=== PATIENT | female | born 1985 | race Caucasian/White ===

== ENCOUNTER 2023-09-30 23:31 | Inpatient (IN) | payer OTHER, BC ==
[2023-10-01] MEDS ORDERED: Morphine 4 MG/ML VIAL SLOW IVP PRN (06:21)
[2023-10-01] MEDS: Sodium Chloride 0.9% 1,000 ML IV SCH ×2 (06:30→21:07)
[2023-10-01 06:38] VITALS: BMI 25.7
[2023-10-01] MEDS ORDERED: Morphine 4 MG/ML VIAL ONE (09:03)
[2023-10-01] MEDS: Morphine 4 MG/ML VIAL SLOW IVP PRN ×4 (09:05→16:34)
[2023-10-01] MEDS ORDERED: Ondansetron PF 4 MG/2 ML Vial IVP PRN (09:15)
[2023-10-01] MEDS ORDERED: Ciprofloxacin Lactate/D5W 400 MG in Premix 1 BAG IVPB SCH (09:30)
[2023-10-01] MEDS ORDERED: EPINEPHrine 1 MG/ML VIAL ONE (11:01)
[2023-10-01] MEDS ORDERED: Bupivacaine 0.25% HCL 30 ML VIAL ONE (11:01)
[2023-10-01] MEDS ORDERED: Albumin 5% 500 ML ONE (11:23)
[2023-10-01] MEDS ORDERED: metroNIDAZOLE 500 MG/100 ML BAG ONE (11:24)
[2023-10-01] MEDS ORDERED: HYDROmorphone 2 MG/ML VIAL ONE (11:48)
[2023-10-01] MEDS ORDERED: PROPOFOL 20 ML ONE (11:48)
[2023-10-01] MEDS ORDERED: Dexamethasone 4 mg/ml Vial ONE (11:49)
[2023-10-01] MEDS ORDERED: Rocuronium Bromide 10 MG/ML (10ML VIAL) ONE ×2 (11:49→11:59)
[2023-10-01] MEDS ORDERED: Ondansetron PF 4 MG/2 ML Vial ONE ×2 (11:49→11:59)
[2023-10-01] MEDS ORDERED: Ketorolac Tromethamine 30 MG/ML VIAL ONE ×2 (11:57→11:59)
[2023-10-01] MEDS ORDERED: PHENYLEPHRINE-NS 100 MCG/ML 10 ML SYRINGE ONE ×2 (11:59→12:13)
[2023-10-01] MEDS ORDERED: Dexamethasone 20 MG/5 ML VIAL ONE (11:59)
[2023-10-01] MEDS ORDERED: NEOSTIGMINE 3 MG/3 ML SYR 3 MG/3 ML SYRINGE ONE ×2 (11:59→13:24)
[2023-10-01] MEDS ORDERED: Glycopyrrolate 0.2 MG/ML 5 ML SYRINGE ONE ×2 (11:59→13:24)
[2023-10-01] MEDS ORDERED: PROPOFOL 200 MG/20 ML VIAL ONE (11:59)
[2023-10-01] MEDS ORDERED: Ondansetron HCl/PF 4 MG/2 ML Vial IVP PRN (12:25)
[2023-10-01] MEDS ORDERED: Promethazine HCl 25 MG/ML VIAL IM PRN (12:25)
[2023-10-01] MEDS ORDERED: HYDROmorphone 2 MG/ML VIAL SLOW IVP PRN (12:25)
[2023-10-01] MEDS ORDERED: fentaNYL PF 100 MCG/2 ML SYRINGE ONE ×2 (13:53→14:11)
[2023-10-01] MEDS ORDERED: metroNIDAZOLE 500 MG in Premix 1 BAG IVPB SCH (14:00)
[2023-10-01] MEDS ORDERED: HYDROmorphone 0.5 MG/0.5 ML SYRINGE ONE ×2 (14:32→14:38)
[2023-10-01] MEDS ORDERED: fentaNYL 50 mcg/mL 1 mL Vial ONE (14:40)
[2023-10-01] MEDS ORDERED: MORPHINE IVPB SCH (18:00)
[2023-10-01] MEDS: Morphine Sulfate 100 MG in Dextrose 5% in Water 98 ML IV SCH (18:01)
[2023-10-01] MEDS ORDERED: Naloxone HCl 0.4 mg/ml Vial IV PRN (20:00)
[2023-10-01] MEDS: metroNIDAZOLE 500 MG in Premix 1 BAG IVPB SCH (21:07)
[2023-10-01] MEDS: Ciprofloxacin Lactate/D5W 400 MG in Premix 1 BAG IVPB SCH (23:00)
[2023-10-01] MEDS: Lorazepam 2 MG/ML VIAL SLOW IVP PRN (23:38)
[2023-10-02] MEDS: metroNIDAZOLE 500 MG in Premix 1 BAG IVPB SCH ×3 (05:43→19:30)
[2023-10-02] MEDS: Sodium Chloride 0.9% 1,000 ML IV SCH ×2 (06:00→15:52)
[2023-10-02 06:40] LABS: Hematocrit 32.6 % (36.0-47.0); Hemoglobin 10.6 g/dL (12.0-16.0); Mean Corpuscular HGB CONC 32.5 g/dL (32.0-36.0); Mean Corpuscular Hemoglobin 30.3 pg (27.0-31.0); Mean Corpuscular Volume 93.1 fl (78.0-98.0); Mean Platelet Volume 9.3 fL (7.4-10.4); Platelet Count 252 10x3/uL (130-400); RBC Distribution Width 13.1 % (11.5-14.5); White Blood Cell (WBC) Count 13.6 10x3/uL (4.8-10.8)
[2023-10-02] MEDS: Lorazepam 2 MG/ML VIAL SLOW IVP PRN ×2 (07:14→19:29)
[2023-10-02] MEDS: Ciprofloxacin Lactate/D5W 400 MG in Premix 1 BAG IVPB SCH ×2 (08:58→19:35)
[2023-10-02] MEDS: Acetaminophen 325 MG TAB PO PRN (17:53)
[2023-10-03] MEDS: Lorazepam 2 MG/ML VIAL SLOW IVP PRN (01:54)
[2023-10-03] MEDS: Acetaminophen 325 MG TAB PO PRN (01:54)
[2023-10-03] MEDS: Sodium Chloride 0.9% 1,000 ML IV SCH ×3 (03:17→13:29)
[2023-10-03] MEDS: metroNIDAZOLE 500 MG in Premix 1 BAG IVPB SCH ×3 (03:55→21:38)
[2023-10-03] MEDS: Morphine Sulfate 100 MG in Dextrose 5% in Water 98 ML IV SCH (05:48)
[2023-10-03 07:02] LABS: Hematocrit 35.2 % (36.0-47.0); Hemoglobin 11.5 g/dL (12.0-16.0); Mean Corpuscular HGB CONC 32.7 g/dL (32.0-36.0); Mean Corpuscular Volume 94.9 fl (78.0-98.0); Mean Platelet Volume 9.1 fL (7.4-10.4); Platelet Count 273 10x3/uL (130-400); Red Blood Cell (RBC) Count 3.71 mill/uL (4.20-5.40); White Blood Cell (WBC) Count 17.2 10x3/uL (4.8-10.8)
[2023-10-03] MEDS ORDERED: Senokot 8.6 MG TAB PO SCH (08:30)
[2023-10-03 08:58] LABS: ALT (SGPT) 58 U/L (8-55); AST (SGOT) 22 U/L (5-34); Albumin 2.7 g/dL (3.5-5.0); Alkaline Phosphatase 142 U/L (40-110); Anion Gap 15 mmol/L (10-20); BUN (Urea Nitrogen) 4 mg/dL (7.0-18.7); Bilirubin, Total 2.9 mg/dL (0.2-1.2); Calc. Creatinine Clearance 145 mL/min (70-130); Carbon Dioxide 21 mmol/L (22-29); Chloride 100 mmol/L (98-107); Estimated GFR 118; Globulin 3.1 g/dL (2.4-3.5); Glucose 71 mg/dL (70-105); Potassium 3.6 mmol/L (3.5-5.1); Protein, Total 5.8 g/dL (6.0-8.3); Sodium 132 mmol/L (136-145)
[2023-10-03] MEDS: Ciprofloxacin Lactate/D5W 400 MG in Premix 1 BAG IVPB SCH (09:03)
[2023-10-03] MEDS: Polyethylene Glycol 3350 17 GM Packet PO SCH (09:03)
[2023-10-03] MEDS ORDERED: Iopamidol-370 76% 500 ML MDV (1 ML CHARGE) ONE (09:41)
[2023-10-03] MEDS ORDERED: Lactated Ringer's 1,000 ML IV SCH (11:45)
[2023-10-03 13:08] LABS: Bacteria/HPF 2+ HPF (None Seen); Bilirubin Negative (Negative); Blood, Urine Negative (Negative); CAUTI Indications for Culture Dysuria,urgency,freq; Clarity Clear (Clear); Glucose, Urine (Dipstick) Normal (Negative); Ketone, Urine Trace mg/dL (Negative); Leukocyte Negative Leu/uL (Negative); Nitrite Negative (Negative); Protein, Urine (Dipstick) Negative (Neg-Trace); RBC/HPF 0-3 HPF (0-3); Specific Gravity, Urine 1.011 (1.002-1.036); Squamous Epithelial 0-3 HPF (0-3); Urobilinogen Normal mg/dL (Less than 2); WBC/HPF 0-3 HPF (0-3)
[2023-10-03 13:10] LABS: Urine Culture Reflex No No
[2023-10-03] MEDS: LevoFLOXacin 750 mg/D5W 750 MG in Premix 1 BAG IVPB SCH (14:46)
[2023-10-03] MEDS ORDERED: VANCOMYCIN IVPB PRN (18:08)
[2023-10-03] MEDS ORDERED: Vancomycin (BATCH) 1.75 GM in Premix 1 BAG IVPB SCH (18:15)
[2023-10-03] MEDS ORDERED: diphenhydrAMINE 25 MG CAP PO PRN (19:44)
[2023-10-03] MEDS ORDERED: Ondansetron HCl/PF 4 MG/2 ML Vial IVP PRN (19:44)
[2023-10-03] MEDS ORDERED: diphenhydrAMINE 50 MG/ML VIAL IM PRN (19:44)
[2023-10-03] MEDS ORDERED: Promethazine HCl 25 MG/ML VIAL IM PRN ×2 (19:44)
[2023-10-03] MEDS ORDERED: Naloxone HCl 0.4 mg/ml Vial IV PRN (19:44)
[2023-10-03] MEDS ORDERED: Communication Order-Pharmacy FS SCH (19:45)
[2023-10-03] MEDS: FENTANYL 500 MCG/10 ML VIAL 2,000 MCG in Sodium Chloride 0.9% 60 ML IV PRN (20:40)
[2023-10-03] MEDS ORDERED: PHARMACY TO DOSE VANCOMYCIN IVPB PRN (20:47)
[2023-10-03 20:59] LABS: Bacteria/HPF None Seen HPF (None Seen); Bilirubin Negative (Negative); Blood, Urine Negative (Negative); Clarity Clear (Clear); Glucose, Urine (Dipstick) Normal (Negative); Ketone, Urine Trace mg/dL (Negative); Leukocyte Negative Leu/uL (Negative); Nitrite Negative (Negative); Protein, Urine (Dipstick) Negative (Neg-Trace); RBC/HPF 0-3 HPF (0-3); Specific Gravity, Urine 1.003 (1.002-1.036); Squamous Epithelial 0-3 HPF (0-3); Urobilinogen Normal mg/dL (Less than 2); WBC/HPF None Seen HPF (0-3)
[2023-10-03] MEDS ORDERED: Furosemide 20 MG TAB PO SCH (21:30)
[2023-10-03] MEDS: diphenhydrAMINE 50 MG/ML VIAL IVP PRN (21:34)
[2023-10-04] MEDS: Acetaminophen 325 MG TAB PO PRN (00:08)
[2023-10-04] MEDS: diphenhydrAMINE 50 MG/ML VIAL IVP PRN ×2 (00:10→21:23)
[2023-10-04] MEDS: Sodium Chloride 0.9% 1,000 ML IV SCH ×4 (02:50→21:46)
[2023-10-04] MEDS: Vancomycin 1 GM in Premix 1 BAG IVPB SCH ×3 (04:45→23:28)
[2023-10-04] MEDS: metroNIDAZOLE 500 MG in Premix 1 BAG IVPB SCH ×3 (04:45→21:30)
[2023-10-04 05:37] LABS: Hematocrit 31.1 % (36.0-47.0); Hemoglobin 10.1 g/dL (12.0-16.0); Mean Corpuscular HGB CONC 32.5 g/dL (32.0-36.0); Mean Corpuscular Hemoglobin 30.2 pg (27.0-31.0); Mean Corpuscular Volume 93.1 fl (78.0-98.0); Mean Platelet Volume 8.9 fL (7.4-10.4); Platelet Count 294 10x3/uL (130-400); RBC Distribution Width 13.2 % (11.5-14.5); Red Blood Cell (RBC) Count 3.34 mill/uL (4.20-5.40); White Blood Cell (WBC) Count 13.8 10x3/uL (4.8-10.8)
[2023-10-04 05:38] LABS: #Eosinphils 0.1 thou/uL (0.0-0.7); #Monocytes 0.7 thou/uL (0.11-0.59); #Neutrophils 11.7 thou/uL (1.40-6.50); %Basophils 0.1 % (0.0-1.0); %Eosinophils 0.4 % (0.0-10.0); %Lymphocytes 9.1 % (21.0-51.0); %Monocytes 4.9 % (0.0-10.0); %Neutrophils 84.5 % (42.0-75.0); Hematocrit 30.5 % (36.0-47.0); Hemoglobin 9.9 g/dL (12.0-16.0); Mean Corpuscular HGB CONC 32.5 g/dL (32.0-36.0); Mean Corpuscular Hemoglobin 30.6 pg (27.0-31.0); Mean Corpuscular Volume 94.1 fl (78.0-98.0); Platelet Count 302 10x3/uL (130-400); RBC Distribution Width 13.2 % (11.5-14.5); Red Blood Cell (RBC) Count 3.24 mill/uL (4.20-5.40); White Blood Cell (WBC) Count 13.8 10x3/uL (4.8-10.8)
[2023-10-04 06:14] LABS: ALT (SGPT) 37 U/L (8-55); AST (SGOT) 14 U/L (5-34); Albumin 2.3 g/dL (3.5-5.0); Alkaline Phosphatase 106 U/L (40-110); Anion Gap 13 mmol/L (10-20); BUN (Urea Nitrogen) 4 mg/dL (7.0-18.7); Bilirubin, Total 1.6 mg/dL (0.2-1.2); Calc. Creatinine Clearance 147 mL/min (70-130); Calcium 7.7 mg/dL (7.8-10.44); Carbon Dioxide 25 mmol/L (22-29); Chloride 99 mmol/L (98-107); Estimated GFR 119; Globulin 2.6 g/dL (2.4-3.5); Glucose 86 mg/dL (70-105); Magnesium 2.1 mg/dL (1.6-2.6); Potassium 3.2 mmol/L (3.5-5.1); Protein, Total 4.9 g/dL (6.0-8.3); Sodium 134 mmol/L (136-145)
[2023-10-04] MEDS: Polyethylene Glycol 3350 17 GM Packet PO SCH (07:59)
[2023-10-04] MEDS: Phenazopyridine HCl 100 MG TAB PO SCH ×3 (07:59→17:32)
[2023-10-04 09:22] LABS: Phosphorus 3.1 mg/dL (2.3-4.7)
[2023-10-04] MEDS ORDERED: Electrolyte Replacement Protocol 1 EACH FS SCH (09:43)
[2023-10-04] MEDS: Ondansetron PF 4 MG/2 ML Vial IVP PRN ×3 (09:43→21:24)
[2023-10-04] MEDS: Potassium Chloride 20 MEQ in Premix 1 BAG IVPB SCH ×2 (10:22→20:24)
[2023-10-04] MEDS: LevoFLOXacin 750 mg/D5W 750 MG in Premix 1 BAG IVPB SCH (17:32)
[2023-10-04] MEDS: Scopolamine 1 mg/72 hour Patch TD SCH (20:54)
[2023-10-04 21:51] LABS: Vancomycin, Trough 13.2 ug/mL
[2023-10-04] MEDS: Vancomycin (BATCH) 1.25 GM in Premix 1 BAG IVPB SCH (23:02)
[2023-10-04] MEDS ORDERED: Vancomycin 1 GM in Premix 1 BAG IVPB SCH (23:59)
[2023-10-05] MEDS: FENTANYL 500 MCG/10 ML VIAL 2,000 MCG in Sodium Chloride 0.9% 60 ML IV PRN (03:07)
[2023-10-05] MEDS: diphenhydrAMINE 50 MG/ML VIAL IVP PRN ×2 (03:17→21:03)
[2023-10-05] MEDS: Ondansetron PF 4 MG/2 ML Vial IVP PRN ×4 (03:17→21:01)
[2023-10-05] MEDS: metroNIDAZOLE 500 MG in Premix 1 BAG IVPB SCH ×3 (04:43→20:34)
[2023-10-05] MEDS: Sodium Chloride 0.9% 1,000 ML IV SCH ×3 (04:43→23:10)
[2023-10-05 05:05] LABS: #Eosinphils 0.1 thou/uL (0.0-0.7); #Monocytes 0.7 thou/uL (0.11-0.59); #Neutrophils 8.8 thou/uL (1.40-6.50); %Basophils 0.1 % (0.0-1.0); %Eosinophils 0.6 % (0.0-10.0); %Lymphocytes 10.6 % (21.0-51.0); %Monocytes 6.6 % (0.0-10.0); %Neutrophils 80.7 % (42.0-75.0); Hematocrit 28.7 % (36.0-47.0); Hemoglobin 9.4 g/dL (12.0-16.0); Mean Corpuscular HGB CONC 32.8 g/dL (32.0-36.0); Mean Corpuscular Hemoglobin 30.4 pg (27.0-31.0); Mean Corpuscular Volume 92.9 fl (78.0-98.0); Mean Platelet Volume 8.9 fL (7.4-10.4); Platelet Count 329 10x3/uL (130-400); RBC Distribution Width 13.3 % (11.5-14.5); Red Blood Cell (RBC) Count 3.09 mill/uL (4.20-5.40); White Blood Cell (WBC) Count 10.9 10x3/uL (4.8-10.8)
[2023-10-05 05:55] LABS: ALT (SGPT) 28 U/L (8-55); AST (SGOT) 16 U/L (5-34); Albumin 2.2 g/dL (3.5-5.0); Alkaline Phosphatase 96 U/L (40-110); Anion Gap 14 mmol/L (10-20); BUN (Urea Nitrogen) 7 mg/dL (7.0-18.7); Bilirubin, Total 1.4 mg/dL (0.2-1.2); Calc. Creatinine Clearance 127 mL/min (70-130); Calcium 7.5 mg/dL (7.8-10.44); Carbon Dioxide 23 mmol/L (22-29); Chloride 103 mmol/L (98-107); Estimated GFR 115; Globulin 2.6 g/dL (2.4-3.5); Glucose 86 mg/dL (70-105); Potassium 3.4 mmol/L (3.5-5.1); Protein, Total 4.8 g/dL (6.0-8.3); Sodium 137 mmol/L (136-145)
[2023-10-05] MEDS: Potassium Chloride 20 MEQ in Premix 1 BAG IVPB SCH ×2 (07:31→09:09)
[2023-10-05] MEDS: Phenazopyridine HCl 100 MG TAB PO SCH (07:31)
[2023-10-05] MEDS: Bisacodyl 5 MG TAB PO SCH ×2 (08:27→09:10)
[2023-10-05] MEDS: Pantoprazole 40 MG VIAL IVP SCH (08:28)
[2023-10-05] MEDS: Vancomycin (BATCH) 1.25 GM in Premix 1 BAG IVPB SCH (09:34)
[2023-10-05] MEDS ORDERED: Ketorolac Tromethamine 30 MG/ML VIAL IVP SCH (11:15)
[2023-10-05] MEDS: Phenazopyridine HCl 100 MG TAB PO PRN (13:26)
[2023-10-05] MEDS: LevoFLOXacin 750 mg/D5W 750 MG in Premix 1 BAG IVPB SCH (13:26)
[2023-10-05] MEDS: Ketorolac Tromethamine 30 MG/ML VIAL IVP SCH ×2 (17:07→23:07)
[2023-10-06] MEDS: Ketorolac Tromethamine 30 MG/ML VIAL IVP SCH ×3 (04:03→18:44)
[2023-10-06] MEDS: Ondansetron PF 4 MG/2 ML Vial IVP PRN ×2 (04:03→12:18)
[2023-10-06] MEDS: metroNIDAZOLE 500 MG in Premix 1 BAG IVPB SCH ×3 (04:04→20:45)
[2023-10-06 05:29] LABS: #Eosinphils 0.2 thou/uL (0.0-0.7); #Monocytes 0.6 thou/uL (0.11-0.59); #Neutrophils 6.2 thou/uL (1.40-6.50); %Basophils 0.1 % (0.0-1.0); %Lymphocytes 16.2 % (21.0-51.0); %Monocytes 7.1 % (0.0-10.0); %Neutrophils 73.3 % (42.0-75.0); Hematocrit 30.2 % (36.0-47.0); Hemoglobin 9.8 g/dL (12.0-16.0); Mean Corpuscular HGB CONC 32.5 g/dL (32.0-36.0); Mean Corpuscular Hemoglobin 30.3 pg (27.0-31.0); Mean Corpuscular Volume 93.5 fl (78.0-98.0); Mean Platelet Volume 8.9 fL (7.4-10.4); Platelet Count 341 10x3/uL (130-400); RBC Distribution Width 13.6 % (11.5-14.5); Red Blood Cell (RBC) Count 3.23 mill/uL (4.20-5.40); White Blood Cell (WBC) Count 8.4 10x3/uL (4.8-10.8)
[2023-10-06] MEDS ORDERED: traMADol HCl 50 MG TAB PO PRN (06:37)
[2023-10-06] MEDS ORDERED: Cyclobenzaprine 10 MG TAB PO PRN (06:38)
[2023-10-06] MEDS ORDERED: Acetaminophen 500 MG TAB PO SCH (06:45)
[2023-10-06] MEDS: Bisacodyl 5 MG TAB PO SCH (08:41)
[2023-10-06] MEDS: Pantoprazole 40 MG VIAL IVP SCH (08:42)
[2023-10-06] MEDS: traMADol HCl 50 MG TAB PO SCH ×2 (11:28→19:32)
[2023-10-06] MEDS: Sodium Chloride 0.9% 1,000 ML IV SCH (11:29)
[2023-10-06] MEDS: Acetaminophen 500 MG TAB PO SCH ×2 (12:18→19:32)
[2023-10-06] MEDS: LevoFLOXacin 750 mg/D5W 750 MG in Premix 1 BAG IVPB SCH (13:32)
[2023-10-06] MEDS: Morphine 2 MG/ML VIAL SLOW IVP PRN ×2 (13:33→17:31)
[2023-10-06] MEDS: Ondansetron HCl/PF 8 MG in Sodium Chloride 0.9% 50 ML IVPB PRN (17:23)
[2023-10-06] MEDS: diphenhydrAMINE 50 MG/ML VIAL IVP PRN (20:50)
[2023-10-07] MEDS: traMADol HCl 50 MG TAB PO SCH ×5 (00:25→23:17)
[2023-10-07] MEDS: Promethazine 25 MG TAB PO PRN ×3 (00:25→23:33)
[2023-10-07] MEDS: Ketorolac Tromethamine 30 MG/ML VIAL IVP SCH ×5 (00:28→23:33)
[2023-10-07] MEDS: Acetaminophen 500 MG TAB PO SCH ×6 (00:28→23:16)
[2023-10-07] MEDS: Sodium Chloride 0.9% 1,000 ML IV SCH ×3 (00:33→15:50)
[2023-10-07] MEDS: Morphine 2 MG/ML VIAL SLOW IVP PRN ×3 (02:45→16:38)
[2023-10-07] MEDS: metroNIDAZOLE 500 MG in Premix 1 BAG IVPB SCH ×3 (03:24→20:22)
[2023-10-07] MEDS: Phenazopyridine HCl 100 MG TAB PO PRN (06:47)
[2023-10-07] MEDS: Pantoprazole 40 MG VIAL IVP SCH (09:19)
[2023-10-07] MEDS: Ondansetron HCl/PF 8 MG in Sodium Chloride 0.9% 50 ML IVPB PRN ×2 (09:19→18:46)
[2023-10-07] MEDS: Bisacodyl 5 MG TAB PO SCH (09:20)
[2023-10-07] MEDS: Naloxegol 12.5 MG TAB PO SCH (09:20)
[2023-10-07] MEDS: LevoFLOXacin 750 mg/D5W 750 MG in Premix 1 BAG IVPB SCH (14:30)
[2023-10-07] MEDS: diphenhydrAMINE 50 MG/ML VIAL IVP PRN ×2 (16:38→23:34)
[2023-10-07] MEDS: Scopolamine 1 mg/72 hour Patch TD SCH (20:22)
[2023-10-08] MEDS: Sodium Chloride 0.9% 1,000 ML IV SCH (01:57)
[2023-10-08] MEDS: metroNIDAZOLE 500 MG in Premix 1 BAG IVPB SCH ×4 (04:17→22:08)
[2023-10-08] MEDS: Ketorolac Tromethamine 30 MG/ML VIAL IVP SCH ×4 (05:27→23:08)
[2023-10-08] MEDS: traMADol HCl 50 MG TAB PO SCH ×2 (05:27→06:05)
[2023-10-08] MEDS: Acetaminophen 500 MG TAB PO SCH ×4 (05:27→20:06)
[2023-10-08] MEDS: Naloxegol 12.5 MG TAB PO SCH (06:05)
[2023-10-08] MEDS: Pantoprazole 40 MG VIAL IVP SCH (09:02)
[2023-10-08] MEDS: Bisacodyl 5 MG TAB PO SCH (09:02)
[2023-10-08] MEDS: LevoFLOXacin 750 mg/D5W 750 MG in Premix 1 BAG IVPB SCH (12:45)
[2023-10-08] MEDS: diphenhydrAMINE 50 MG/ML VIAL IVP PRN (22:15)
[2023-10-08] MEDS: Promethazine 25 MG TAB PO PRN (22:20)
[2023-10-09] MEDS: traMADol HCl 50 MG TAB PO PRN ×2 (04:00→12:11)
[2023-10-09] MEDS: Ketorolac Tromethamine 30 MG/ML VIAL IVP SCH ×2 (05:10→12:11)
[2023-10-09] MEDS: metroNIDAZOLE 500 MG in Premix 1 BAG IVPB SCH (05:18)
[2023-10-09] MEDS: Naloxegol 12.5 MG TAB PO SCH (05:46)
[2023-10-09 07:04] LABS: Anion Gap 12 mmol/L (10-20); BUN (Urea Nitrogen) Less than 4 mg/dL (7.0-18.7); Calc. Creatinine Clearance 159 mL/min (70-130); Calcium 7.8 mg/dL (7.8-10.44); Carbon Dioxide 22 mmol/L (22-29); Chloride 106 mmol/L (98-107); Estimated GFR 121; Glucose 96 mg/dL (70-105); Potassium 3.5 mmol/L (3.5-5.1); Sodium 136 mmol/L (136-145)
[2023-10-09] MEDS: Acetaminophen 500 MG TAB PO SCH (11:22)
[2023-10-09 11:51] VITALS: BP 132/84; TEMP 98.1
[2023-10-09] MEDS ORDERED: Ibuprofen 600 MG TAB PO PRN (13:02)
[2023-10-09] MEDS ORDERED: hydrOXYzine 25 MG TAB PO PRN (13:03)
[2023-10-09] MEDS ORDERED: Bisacodyl 5 MG TAB PO PRN (13:03)
[2023-10-09] MEDS ORDERED: Ondansetron ORAL SOLN. 4 MG/5 ML UDCUP PO PRN (13:03)
[2023-10-09] MEDS: LevoFLOXacin 750 mg/D5W 750 MG in Premix 1 BAG IVPB SCH (13:14)
[2023-10-12] MEDS ORDERED: SEMAGLUTIDE 0.5 MG/0.5 ML SC SCH (09:00)
== END 2023-10-09 14:23 | disposition home or self-care (01) | DRG 853 ==
LOC: T4-A 10-01 06:11 → SURG A 10-03 18:56
PROVIDERS: ADMIT Surgery; ATTEND Surgery
PROC: 0DTF4ZZ Resection of Right Large Intestine, Percutaneous Endoscopic Approach (ICD-10-PCS; principal; 2023-10-01)
PROC: 3E033XZ Introduction of Vasopressor into Peripheral Vein, Percutaneous Approach (ICD-10-PCS; 2023-10-01)
PROC: 30233J1 Transfusion of Nonautologous Serum Albumin into Peripheral Vein, Percutaneous Approach (ICD-10-PCS; 2023-10-01)
DX: A41.9 Sepsis, unspecified organism (principal); J96.01 Acute respiratory failure with hypoxia; K35.33 Acute appendicitis with perforation, localized peritonitis, and gangrene, with abscess; E87.1 Hypo-osmolality and hyponatremia; J98.11 Atelectasis; N39.0 Urinary tract infection, site not specified; K56.7 Ileus, unspecified; K91.89 Other postprocedural complications and disorders of digestive system; G89.18 Other acute postprocedural pain; D72.829 Elevated white blood cell count, unspecified; R00.0 Tachycardia, unspecified; E87.6 Hypokalemia; Z88.0 Allergy status to penicillin; Z79.899 Other long term (current) drug therapy
CPT/HCPCS: 36415; 71045; 71275; 74018; 74022; 74178; 80048; 80053; 80202; 81001; 82248; 83690; 83735; 84100; 84145; 85025; 85027; 86140; 87040; 87070; 87077; 87086; 87186; 87205; 88307; A4314; A4649; C9113; J0171; J0744; J1100; J1170; J1200; J1885; J1956; J2060; J2270; J2272; J2274; J2405; J2704; J3010; J3370; J3370-JW; J3480; J3490; J7050; J7070; J7120; P9045; Q0169; Q9967; S0020

== ENCOUNTER 2023-10-13 10:44 | Emergency (ER) | payer OTHER, BC ==
[2023-10-13] MEDS ORDERED: Iopamidol-370 76% 500 ML MDV (1 ML CHARGE) ONE (11:13)
[2023-10-13 11:29] LABS: #Eosinphils 0.1 thou/uL (0.0-0.7); #Monocytes 0.5 thou/uL (0.11-0.59); #Neutrophils 6.2 thou/uL (1.40-6.50); %Basophils 0.1 % (0.0-1.0); %Eosinophils 0.6 % (0.0-10.0); %Lymphocytes 15.2 % (21.0-51.0); %Monocytes 6.7 % (0.0-10.0); Hematocrit 34.9 % (36.0-47.0); Hemoglobin 11.1 g/dL (12.0-16.0); Mean Corpuscular HGB CONC 31.8 g/dL (32.0-36.0); Mean Corpuscular Hemoglobin 29.7 pg (27.0-31.0); Mean Corpuscular Volume 93.3 fl (78.0-98.0); Mean Platelet Volume 8.7 fL (7.4-10.4); Platelet Count 509 10x3/uL (130-400); RBC Distribution Width 13.5 % (11.5-14.5); Red Blood Cell (RBC) Count 3.74 mill/uL (4.20-5.40)
[2023-10-13 11:43] LABS: INR-International Normal Ratio 1.1; PTT 23.3 sec (22.9-36.1); Prothrombin Time 14.4 sec (12.0-14.7)
[2023-10-13 11:46] LABS: ALT (SGPT) 23 U/L (8-55); AST (SGOT) 27 U/L (5-34); Albumin 3.4 g/dL (3.5-5.0); Alkaline Phosphatase 87 U/L (40-110); Anion Gap 13 mmol/L (10-20); BUN (Urea Nitrogen) 7 mg/dL (7.0-18.7); Bilirubin, Total 0.8 mg/dL (0.2-1.2); Calc. Creatinine Clearance 0 mL/min (70-130); Calcium 8.7 mg/dL (7.8-10.44); Carbon Dioxide 23 mmol/L (22-29); Chloride 107 mmol/L (98-107); Estimated GFR 117; Globulin 3.8 g/dL (2.4-3.5); Glucose 94 mg/dL (70-105); Potassium 3.5 mmol/L (3.5-5.1); Protein, Total 7.2 g/dL (6.0-8.3); Sodium 139 mmol/L (136-145)
[2023-10-13] MEDS ORDERED: fentaNYL 50 mcg/mL 1 mL Vial ONE (12:12)
[2023-10-13] MEDS ORDERED: Ketorolac Tromethamine 30 MG/ML VIAL ONE (12:12)
[2023-10-13 12:45] LABS: BHCG - Serum Negative (NEGATIVE); Pregs Control Background? CLEAR/WHITE (CLR/WHITE); Pregs Control Bar Appear? YES (CONTROL BAR)
[2023-10-13 12:58] LABS: Bacteria/HPF None Seen HPF (None Seen); Bilirubin Negative (Negative); Blood, Urine Negative (Negative); CAUTI Indications for Culture Pelvic or flank pain; Clarity Clear (Clear); Glucose, Urine (Dipstick) Normal (Negative); Ketone, Urine Negative (Negative); Leukocyte Negative Leu/uL (Negative); Nitrite Negative (Negative); Protein, Urine (Dipstick) 10 mg/dL (Neg-Trace); RBC/HPF 0-3 HPF (0-3); Specific Gravity, Urine 1.018 (1.002-1.036); Squamous Epithelial 0-3 HPF (0-3); Urobilinogen Normal mg/dL (Less than 2); WBC/HPF 0-3 HPF (0-3)
[2023-10-13 13:13] LABS: Urine Culture Reflex No No
[2023-10-13] MEDS ORDERED: Piperacillin/Tazobactam 3.375 GM VIAL ONE (13:29)
[2023-10-13] MEDS ORDERED: Sodium Chloride 0.9% 100 ML ONE (13:29)
[2023-10-13] MEDS ORDERED: Vancomycin (BATCH) 1.5 GM in Premix 1 BAG IVPB SCH (13:45)
[2023-10-13] MEDS ORDERED: HYDROcodone/Acetaminophen 5/325 mg Tablet PO PRN (14:17)
[2023-10-13] MEDS ORDERED: HYDROcodone/Acetaminophen 5/325 mg Tablet ONE ×2 (15:12→15:59)
[2023-10-13] MEDS ORDERED: Ibuprofen 200 MG TAB ONE (15:59)
[2023-10-13] MEDS ORDERED: Ciprofloxacin Lactate/D5W 400 MG in Premix 1 BAG IVPB SCH (21:00)
[2023-10-13] MEDS ORDERED: metroNIDAZOLE 500 MG in Premix 1 BAG IVPB SCH (22:00)
== END 2023-10-13 17:48 | disposition home or self-care (01) ==
LOC: ERS 10:44
DX: K91.89 Other postprocedural complications and disorders of digestive system (principal); R10.11 Right upper quadrant pain
CPT/HCPCS: 36415; 71275; 74177; 80053; 81001; 83605; 84703; 85025; 85610; 85730; 87040; 96365; 96366; 96367; 96375; J1885; J2543; J3010; J3370; J3490; Q9967